=== PATIENT | female | born 1960 | race Caucasian/White ===

== ENCOUNTER 2018-02-23 09:29 | Day surgery (SDC) | payer OTHER ==
[2018-02-21 17:34] VITALS: BMI 39.9
[~2018-02-23 09:29] MED LIST: LACTATED RINGERS 1,000 ML IV SCH
[2018-02-23 09:54] VITALS: TEMP 98.4
[2018-02-23] MEDS ORDERED: LIDOCAINE 1% 20 ML VIAL (10MG/ML) FOR IV START INTRADERMA ONE (10:01)
[2018-02-23] MEDS ORDERED: PROPOFOL 10 MG/ML 20 ML VIAL IV ONE (10:27)
[2018-02-23] MEDS ORDERED: LIDOCAINE 1% INJ 10MG/ML (20 ML MDV) ONE (10:27)
--- NOTE | 2018-02-23 10:37 | P.PCN ---
Date of Procedure: 02/23/18 Procedure(s) Performed: BRIEF HISTORY: Patient is a 57-year-old, pleasant, female, scheduled for an upper endoscopy as a part of evaluation of a history of GERD and intermittent dysphagia to solids for the last several months duration. She was briefly started on Zantac 150 milligrams twice daily and feeling better.. PROCEDURE PERFORMED: Esophagogastroduodenoscopy with biopsy and dilation. PREOPERATIVE DIAGNOSIS: Long-standing history of GERD and intermittent dysphagia to solids. IV sedation per anesthesia. PROCEDURE: After informed consent was obtained, the patient was brought into the endoscopy unit. IV sedation was administered by Anesthesia under continuous monitoring. Initially the Olympus GIF-140 video endoscope was inserted into the mouth. Esophagus intubated without any difficulty. It was gradually advanced into the stomach and duodenum and carefully examined. The bulb and the second part of the duodenum appeared normal. The scope at this time was withdrawn to the stomach, adequately insufflated with air, and upon careful examination, mucosa of the antrum, body, cardia and the fundus appeared normal. The scope was then withdrawn into the esophagus. Small sliding Hiatal hernia noted. The GE junction was located at 39 cm from the incisors. There was a distal esophageal Schatzki's ring identified and this was dilated using 15-16.5 and admitted TTS balloon for total of 60 seconds. There were erosions noted in the distal esophagus associated with thickened distal esophageal folds and biopsies were done to evaluate for reflux/years of age esophagitis. The rest of the esophagus appeared normal and the patient tolerated the procedure well. IMPRESSION: 1. Distal esophageal Schatzki's ring status post balloon dilation using 15 and 16.5 and admitted TTS balloon as described above. 2. Thickened distal esophageal folds and superficial erosions consistent with LA grade B reflux esophagitis. RECOMMENDATIONS: The findings of this examination were discussed with the patient as well as a family. She was advised to follow with the biopsy results. She will continue with her current medications and follow reflux measures..
[2018-02-23 11:03] VITALS: BP 124/59; PULSE 90; RESP 20
== END 2018-02-23 11:32 | disposition home or self-care (01) ==
LOC: ORWHC2ENDO 09:29
PROVIDERS: ATTEND Internal Medicine Gastroenterology
DX: K21.0 Gastro-esophageal reflux disease with esophagitis (principal); K22.2 Esophageal obstruction; K44.9 Diaphragmatic hernia without obstruction or gangrene; I10 Essential (primary) hypertension; E78.5 Hyperlipidemia, unspecified; F17.210 Nicotine dependence, cigarettes, uncomplicated; F31.9 Bipolar disorder, unspecified; Z79.899 Other long term (current) drug therapy; Z88.2 Allergy status to sulfonamides
CPT/HCPCS: 88305; 43239; 43249; J2001; J2704; C1726

== ENCOUNTER → 2019-02-16 | Outpatient (CLI) | payer OTHER ==
--- NOTE | 2019-02-17 07:08 | US ---
EXAMINATION TYPE: US kidneys/renal and bladder DATE OF EXAM: 02/16/2019 COMPARISON: NONE CLINICAL HISTORY: R10.9 Abdominal Pain; N28.9 Disorder of Kidney. Pain, mostly in back, vomiting EXAM MEASUREMENTS: Right Kidney: 9.6 x 5.0 x 4.5cm Left Kidney: 10.0 x 5.4 x 4.8 cm COMPLEX LIVER MASSES NOTED IN LIVER MEASURING 5.1 x 4.4 x 5.0cm and 3.7 x 4.8 x 4.8cm Right Kidney: mild hydro Left Kidney: wnl cm Bladder: wnl No nephrolithiasis is seen. No masses are identified. The urinary bladder is anechoic. Bilateral ureteral jets are seen. IMPRESSION: 1. Complex hepatic lesions. Metastatic disease is not excluded. CT of the abdomen is recommended 2. Mild right-sided hydronephrosis.
== END | disposition home or self-care (01) ==
LOC: RADUSWWP 16:13
PROVIDERS: ATTEND Family Medicine
DX: N28.9 Disorder of kidney and ureter, unspecified (principal)
CPT/HCPCS: 76770

== ENCOUNTER → 2019-02-20 | Outpatient (CLI) | payer OTHER ==
--- NOTE | 2019-02-20 15:15 | CT ---
EXAMINATION TYPE: CT abdomen w con DATE OF EXAM: 02/20/2019 COMPARISON: Ultrasound 02/16/2019 HISTORY: abnormal US, liver mass CT DLP: 1686 mGycm CONTRAST: CT scan of the abdomen is performed with Oral Contrast and without and with IV Contrast, patient inje cted with 80 mL of Isovue 300. FINDINGS: LUNG BASES-: No visible nodule. No infiltrate. LIVER/GB: Large right-sided adrenal mass abuts the liver and parts mass effect upon the liver. There is an irregular mass within the central portion of the liver near the violette hepatis measuring 5.0 x 4 .9 cm. Underlying neoplasm is not excluded. There is mild dilatation of the left hepatic biliary tree . Several additional scattered hypoattenuating nodules lesions are too small to appropriately charact erize. There is a well-circumscribed hepatic mass noted near the dome at the periphery of the anterio r segment right hepatic lobe measuring 5.2 cm with Hounsfield unit measurements of less than 20 bran tible with a simple cyst. There is an additional 1.2 cm lesion anterior left hepatic lobe lateral seg ment measuring 1.2 cm. Common bile duct is dilated at 1.6 cm. PANCREAS: Fullness in the region of the pancreatic head and uncinate process. Underlying neoplasm is not excluded. Recommend MRI for further characterization. SPLEEN: No splenic enlargement. No lesion seen. ADRENALS: Complex right adrenal mass measures 7.7 x 5.2 cm and contains internal cystic and calcific areas. Left adrenal mass measures 3.9 x 3.5 cm. Metastatic disease is not excluded KIDNEYS/BLADDER: Right-sided hydronephrosis of uncertain etiology. Pelvic ureter was not evaluated. N o nephrolithiasis. No distinct renal mass. Urinary bladder grossly unremarkable. BOWEL: Normal appendix. Normal bowel caliber. No inflammation. LYMPH NODES: Multiple mesenteric lymph nodes are identified the largest of which measure 1.4 cm short axis. AORTA: No significant abnormality. OSSEOUS STRUCTURES: No significant abnormality is seen. OTHER: No significant additional abnormality is seen. IMPRESSION: 1. Complex hepatic lesion central liver may reflect underlying neoplasm. There is biliary ductal dila tation left hepatic lobe as well as the common bile duct dilatation. 2. Additional hepatic cysts are suspected. 3. Fullness in the region of the pancreatic head and uncinate process. I do recommend MRI for further evaluation. 4. Common bile duct dilatation. 5. Enlargement of several mesenteric lymph nodes. 6. Bilateral complex adrenal masses.
== END ==
LOC: RADCTMAIN 13:26
PROVIDERS: ATTEND Family Medicine
DX: K76.9 Liver disease, unspecified (principal); K83.8 Other specified diseases of biliary tract; E27.8 Other specified disorders of adrenal gland; R59.0 Localized enlarged lymph nodes; Z88.0 Allergy status to penicillin; Z88.2 Allergy status to sulfonamides
CPT/HCPCS: 82565; 84520; 74160; 36415; Q9967 ×2

== ENCOUNTER → 2019-03-11 | Outpatient (CLI) | payer OTHER ==
--- NOTE | 2019-03-11 12:41 | MR ---
EXAMINATION TYPE: MR abdomen wo/w con DATE OF EXAM: 03/11/2019 COMPARISON: Previous ultrasound of the abdomen dated 02/16/[address] of the abdomen date d 02/20/2019. HISTORY: rt upper quad pain CONTRAST: Standard multiplanar, multisequence MRI departmental protocol utilizing 9.5 mL intravenous Gadavist g adolinium contrast. FINDINGS: Lung bases appear clear. 6 cm lesion in the posterior segment right lobe of the liver, 7. Cystic on CT shows irregular interna l margins and some peripheral enhancement. Several other smaller hepatic lesions also do not meet the requirements of a simple cyst. Central biliary mass noted on CT containing both cystic and solid com ponents and shows some irregular enhancement. A 7.5 cm right adrenal mass is complex in nature with cystic and solid components and demonstrates ir regular enhancement. A smaller left adrenal mass also demonstrates irregular enhancement. There is enhancement of the gallbladder wall and there is a small amount of pericholecystic fluid. Th ere are some irregularities along the dependent portion of the gallbladder wall which may represent s mall dependent stones or gallbladder polyps. No definite pancreatic mass lesion is seen. There is right-sided hydronephrosis. Mesenteric adenopathy persists but is less well visualized on this examination compared to CT. IMPRESSION: 1. THE LESIONS IN THE LIVER WOULD BE COMPATIBLE WITH METASTATIC DISEASE WELL THE ADRENAL MASS L ESIONS. 2. ENHANCEMENT OR GALLBLADDER WALL WITH PERICHOLECYSTIC FLUID SUGGESTS ACALCULOUS CHOLECYSTITIS. THER E ARE SOME IRREGULARITIES ALONG THE DEPENDENT WALL OF THE GALLBLADDER WHICH MAY REPRESENT SMALL STONE S OR POLYPS. 3. RIGHT-SIDED HYDRONEPHROSIS OF UNKNOWN ETIOLOGY. 4. MESENTERIC ADENOPATHY. 5. NO DEFINITE PANCREATIC MASS LESION.
== END | disposition home or self-care (01) ==
LOC: RADMRIMAIN 10:40
PROVIDERS: ATTEND Family Medicine
DX: N13.30 Unspecified hydronephrosis (principal); R59.0 Localized enlarged lymph nodes; R16.0 Hepatomegaly, not elsewhere classified; R10.11 Right upper quadrant pain; K86.9 Disease of pancreas, unspecified
CPT/HCPCS: 74183; A9585